=== PATIENT | female | born 1945 | race Caucasian/White ===

== ENCOUNTER → 2024-04-04 15:33 | Outpatient (BNVA) | payer MEDICARE, SELFPAY | PROVIDERS: PCP Family Medicine; Referring Provider Family Medicine; Visit Provider Podiatrist | DX: I25.10 Atherosclerotic heart disease of native coronary artery without angina pectoris (principal); E11.9 Type 2 diabetes mellitus without complications; B35.1 Tinea unguium; I70.203 Unspecified atherosclerosis of native arteries of extremities, bilateral legs; L70.3 Acne tropica; M79.671 Pain in right foot; M79.672 Pain in left foot; N18.30 Chronic kidney disease, stage 3 unspecified; L84 Corns and callosities; D64.9 Anemia, unspecified; L60.0 Ingrowing nail | CPT/HCPCS: 11056; 11721 ==